=== PATIENT | female | born 1950 | race Caucasian/White ===

== ENCOUNTER 2022-02-01 12:57 | Inpatient (IN) | payer OTHER, MEDICARE ==
[~2022-02-01] VITALS: Ht 165.1 cm; Wt 70.8 kg
--- NOTE | 2022-02-01 13:04 | NUR ---
Patient to ER bed 04 to gown for evaluation. Side rails up. Report given received from PLACIDO Hilario.
[2022-02-01 13:05] VITALS: BP_SYST 119
--- NOTE | 2022-02-01 13:05 | NUR ---
Pt was brought in from home by ACLS after brother did a wellness check this am and determined she had not been eating and drinking for several days. Pt has hx of psychiatric conditions and type II diabetes. Pt was seen for failure to thrive 6 weeks ago by Alvarado Ng. Pt lives alone and brother is concerned that she can no longer care for herself. VSS, patient is A&Ox2, slow to respond, clearly anxious. Care to be provided as ordered.
[2022-02-01] MEDS ORDERED: NACL 0.9% 1,000 ML IV ONE ×3 (13:15→16:15)
--- NOTE | 2022-02-01 15:00 | NUR ---
ER at bedside examining patient.
--- NOTE | 2022-02-01 15:10 | NUR ---
RECIEVED REPORT FROM PLACIDO SEWELL.
[2022-02-01 15:16] LABS: BASOPHILS # (AUTO) 0.1 K/uL (0.0-0.2); EOSINOPHILS # (AUTO) 0.1 K/uL (0.0-0.4); MEAN CORPUSCULAR HEMOGLOBIN 31 pg (27-31); MEAN CORPUSCULAR HGB CONC 36 % (32-36); MONOCYTES # (AUTO) 1.1 K/uL (0.0-1.0); NEUTROPHILS # (AUTO) 11.5 K/uL (1.8-7.7)
[2022-02-01 15:20] LABS: ACETONE, SERUM NEGATIVE (NEGATIVE)
[2022-02-01 15:22] LABS: WHITE BLOOD COUNT (AUTO) 14.7 K/uL (4.8-10.8)
[2022-02-01 15:23] LABS: BASOPHILS % (AUTO) 0.4 % (0.0-2.0); EOSINOPHILS % (AUTO) 0.5 % (0.0-4.0); HEMATOCRIT 39.9 % (36-48); HEMOGLOBIN 14.2 g/dL (12.0-16.0); LYMPHOCYTES # (AUTO) 1.9 K/uL (1.0-5.5); LYMPHOCYTES % (AUTO) 13.3 % (20.5-51.5); MEAN CORPUSCULAR VOLUME 86 fL (79.0-98.0); MONOCYTES % (AUTO) 7.6 % (1.7-9.3); NEUTROPHILS % (AUTO) 78.2 % (40.0-70.0); PLATELET COUNT (AUTO) 251 K/uL (130-430); RED BLOOD CELL COUNT(AUTO) 4.63 MIL/uL (4.2-6.2)
[2022-02-01 15:39] LABS: ANION GAP 17 (5-15); CALCIUM 10.5 mg/dL (8.4-11.0); CHLORIDE 95 mmol/L (98-107); GLUCOSE 337 mg/dL (70-99)
[2022-02-01 15:40] LABS: ALANINE AMINOTRANSFERASE 100 U/L (12-78); ALBUMIN 3.4 g/dL (3.4-4.8); ASPARTATE AMINOTRANSFERASE 77 U/L (10-37); CREATININE 1.62 mg/dL (0.55-1.30); UREA NITROGEN, BLOOD 37 mg/dL (8-21)
[2022-02-01] MEDS ORDERED: POTASSIUM CHLORIDE 20 MEQ/PKT PACKET PO ONE (15:45)
[2022-02-01] MEDS ORDERED: KCL 40 mEq in 100 mL (PREMIX) 100 ML IV ONE (15:45)
[2022-02-01] MEDS ORDERED: cefTRIAXone 1 GM in D5W 50 ML IV ONE (16:00)
[2022-02-01 16:01] LABS: PHOSPHORUS 3.2 mg/dL (2.7-4.5)
[2022-02-01] MEDS ORDERED: DOCUSATE SODIUM 100 MG CAPSULE PO PRN (16:15)
[2022-02-01] MEDS ORDERED: MAGNESIUM SULFATE 50 ML IV PRN (16:15)
[2022-02-01] MEDS ORDERED: POTASSIUM CHLORIDE 20 MEQ TAB.PRT.SR PO PRN (16:15)
[2022-02-01] MEDS ORDERED: MUPIROCIN 2% TOPICAL OINTMENT 22 GM NS PRN (16:15)
[2022-02-01] MEDS ORDERED: ONDANSETRON HCL 4 MG/2 ML VIAL IVP PRN (16:15)
[2022-02-01] MEDS ORDERED: ACETAMINOPHEN 325 MG TABLET PO PRN (16:15)
[2022-02-01] MEDS ORDERED: MORPHINE 2 MG/ML INJ. SYRINGE IVP PRN ×2 (16:15)
[2022-02-01] MEDS ORDERED: cefTRIAXone 1 GM VIAL ONE (16:39)
--- NOTE | 2022-02-01 17:43 | NUR ---
PT ATTEMPTED TO PROVIDE URINE SPECIMEN, SCANT AMOUNT OF BRIGHTLY ORANGE COLORED URINE.
[2022-02-01] MEDS ORDERED: LOSA50TA28 PO (17:58)
[2022-02-01] MEDS ORDERED: PROP60CA2 PO (17:58)
[2022-02-01] MEDS ORDERED: ATOR10TA68 PO (17:58)
[2022-02-01] MEDS ORDERED: LEVO75CA5 PO (17:58)
[2022-02-01] MEDS ORDERED: DAPA5TAB PO (17:58)
[2022-02-01] MEDS ORDERED: DULO60CA42 PO (17:58)
[2022-02-01] MEDS ORDERED: METF-834 PO (17:58)
[2022-02-01] MEDS ORDERED: PIOG30TA70 PO (17:58)
[2022-02-01] MEDS ORDERED: CARB100C4 PO (17:58)
[2022-02-01] MEDS ORDERED: KLO1 PO (17:58)
--- NOTE | 2022-02-01 18:00 | NUR ---
Swabbed for COVID, sent to lab
--- NOTE | 2022-02-01 18:08 | NUR ---
Admit bed requested Patient will be admitted to care of . Admitted to MEDSURG unit. Diagnosis ACUTE KIDNEY INFECTION Inpatient (Yes or No) Y Observation (Yes or No) N Orientation concerns or request close to nursing station (Yes or No) N Covid Status PENDING On vent or bipap N Isolation requirements N Needs a sitter N From Home (Yes or if No enter name of facility) HOME Requires Dialysis (Yes or No) N Med Rec Completed (Yes of No) YES
--- NOTE | 2022-02-01 18:11 | NUR ---
IVF RUNNING SLOWLY, PT WITH 24 GAUGE TO RAC, PT SPLINTED TO SOFT BOARD FOR PROPER PLACEMENT TO ASSIST IN FLUID REPLACCEMENT.
[2022-02-01 19:45] VITALS: BP_SYST 115
--- NOTE | 2022-02-01 20:19 | NUR ---
Patient will be admitted to [facility]. Admitted to MEDSURG unit. Will go to room 122. Belongings list completed. Complete and up to date summary report printed. SBAR report to be given at bedside with opportunity for questions.
[2022-02-01 20:30] VITALS: BP_SYST 121
--- NOTE | 2022-02-01 20:30 | NUR ---
OPENING NOTE RECEIVED PT ED PT AOX2, WITH DELAYED RESPONSE. IVF RUNNING SLOWLY, PT WITH 24 GAUGE TO RAC. FLUIDS SHOULD BE BOLUS WILL PLACE ANOTHER IV TO COMPLETE 3 BOLUS OF NS
--- NOTE | 2022-02-01 20:40 | NUR ---
PT PULLED OUT IV PT STATED ACCIDENT SHE WAS TRYING TO FIX HER COVER AND IV FELL OUT
--- NOTE | 2022-02-01 21:15 | NUR ---
NEW IV PLACED IV STARTED IN LEFT A/C 20 G.
--- NOTE | 2022-02-01 21:45 | NUR ---
CALLED MD TO INFORM PT HARD STICK AND PT PULLED OUT IV AND K RIDER WAS NOT GIVEN IN ED.
--- NOTE | 2022-02-01 22:30 | NUR ---
PT PULLED OUT IV PT STATED SHE TOOK OUT IV BECAUSE IT WAS HURTING. PT EDUCATED ON WHY SHE HAS TO LEAVE THE NEXT IV IN PLACE.
--- NOTE | 2022-02-01 22:40 | NUR ---
CALLED MD CALLED MD TO REQUEST MIDLINE, ORDER WAS GIVEN.
--- NOTE | 2022-02-01 23:00 | NUR ---
CALLED REQUESTED STAT LABS R/T K TEJ UNABLE TO BE GIVEN WAITING ON MIDLINE
--- NOTE | 2022-02-01 23:05 | NUR ---
SPOKE WITH BROTHER ROCHELLE SPOKE WITH BROTHER TO VERIFY MEDICATIONS AND THAT PT LIVES BY HERSELF. BROTHER VERIFIED PT HAS NURSE THAT SHOULD COME DAILY
[2022-02-01] MEDS: QUEtiapine FUMARATE 25 MG TABLET PO PRN (23:24)
--- NOTE | 2022-02-01 23:30 | NUR ---
NEW IV STARTED PT HAS A NEW 29G IN THE RIGHT FOREARM.
[2022-02-01 23:40] LABS: MEAN CORPUSCULAR HGB CONC 36 % (32-36)
[2022-02-01 23:54] LABS: BASOPHILS % (AUTO) 0.2 % (0.0-2.0); HEMATOCRIT 43.3 % (36-48); HEMOGLOBIN 15.4 g/dL (12.0-16.0); LYMPHOCYTES # (AUTO) 1.9 K/uL (1.0-5.5); LYMPHOCYTES % (AUTO) 11.1 % (20.5-51.5); MEAN CORPUSCULAR HEMOGLOBIN 30 pg (27-31); MEAN CORPUSCULAR VOLUME 85 fL (79.0-98.0); MONOCYTES # (AUTO) 1.9 K/uL (0.0-1.0); MONOCYTES % (AUTO) 10.6 % (1.7-9.3); NEUTROPHILS # (AUTO) 13.8 K/uL (1.8-7.7); NEUTROPHILS % (AUTO) 78.1 % (40.0-70.0); PLATELET COUNT (AUTO) 224 K/uL (130-430); RED BLOOD CELL COUNT(AUTO) 5.12 MIL/uL (4.2-6.2); RED CELL DISTRIBUTION WIDTH 15.8 % (9.0-15.0); WHITE BLOOD COUNT (AUTO) 17.6 K/uL (4.8-10.8)
[2022-02-02] VITALS: BP_SYST 127
--- NOTE | 2022-02-02 01:00 | NUR ---
CALLED CRITICAL LAB K+ 2.0Emily ORDERED AND PLACE PT ON TELE
[2022-02-02 01:13] LABS: ANION GAP 18 (5-15); CHLORIDE 98 mmol/L (98-107); TOTAL BILIRUBIN 2.6 mg/dL (0.0-1.0)
[2022-02-02 01:14] LABS: ALANINE AMINOTRANSFERASE 96 U/L (12-78); ALBUMIN 3.5 g/dL (3.4-4.8); ASPARTATE AMINOTRANSFERASE 61 U/L (10-37); UREA NITROGEN, BLOOD 36 mg/dL (8-21)
[2022-02-02 01:15] LABS: CALCIUM 9.7 mg/dL (8.4-11.0); CREATININE 1.36 mg/dL (0.55-1.30); GLUCOSE 324 mg/dL (70-99)
[2022-02-02] MEDS ORDERED: KCL 40 mEq in 100 mL (PREMIX) 100 ML IV ONE (01:30)
--- NOTE | 2022-02-02 07:10 | NUR ---
opening note received SBAR from night RN. Patient in bed, respirations even, non labored, 2L O2 nasal canula, bed in low and locked position call light within reach,, bed alarm on.
[2022-02-02 07:21] LABS: BASOPHILS % (AUTO) 0.1 % (0.0-2.0); HEMATOCRIT 40.9 % (36-48); HEMOGLOBIN 14.4 g/dL (12.0-16.0); LYMPHOCYTES # (AUTO) 1.6 K/uL (1.0-5.5); LYMPHOCYTES % (AUTO) 14.5 % (20.5-51.5); MEAN CORPUSCULAR HEMOGLOBIN 30 pg (27-31); MEAN CORPUSCULAR HGB CONC 35 % (32-36); MEAN CORPUSCULAR VOLUME 86 fL (79.0-98.0); MONOCYTES # (AUTO) 1.3 K/uL (0.0-1.0); MONOCYTES % (AUTO) 11.3 % (1.7-9.3); NEUTROPHILS # (AUTO) 8.3 K/uL (1.8-7.7); NEUTROPHILS % (AUTO) 74.1 % (40.0-70.0); PLATELET COUNT (AUTO) 206 K/uL (130-430); RED BLOOD CELL COUNT(AUTO) 4.77 MIL/uL (4.2-6.2); RED CELL DISTRIBUTION WIDTH 15.6 % (9.0-15.0); WHITE BLOOD COUNT (AUTO) 11.2 K/uL (4.8-10.8)
[2022-02-02 07:38] LABS: ANION GAP 13 (5-15); CALCIUM 8.7 mg/dL (8.4-11.0); CHLORIDE 105 mmol/L (98-107); CREATININE 1.17 mg/dL (0.55-1.30); GLUCOSE 263 mg/dL (70-99); UREA NITROGEN, BLOOD 31 mg/dL (8-21)
[2022-02-02 08:00] VITALS: BP_SYST 114
--- NOTE | 2022-02-02 08:31 | NUR ---
CONSULT CARDIOLOGY NSTEMI TYPE 2 DR ACEVEDO [phone] DR ACEVEDO ROUNDING AND INFORMED OF CONSULT
[2022-02-02] MEDS: DULoxetine HCL 30 MG CAPSULE.DR (CYMBALTA) PO SCH (08:43)
[2022-02-02] MEDS: metFORMIN HCL 500 MG TABLET PO SCH ×2 (08:44→18:00)
[2022-02-02] MEDS: ATORVASTATIN 10 MG TABLET PO SCH (08:48)
[2022-02-02] MEDS: LOSARTAN POTASSIUM 50 MG TABLET (COZAAR) PO SCH (08:49)
[2022-02-02] MEDS ORDERED: PIOGLITAZONE HCL 15 MG TABLET PO SCH (09:00)
[2022-02-02] MEDS ORDERED: ARIPiprazole 5 MG TAB PO ONE ×2 (09:00→09:15)
[2022-02-02] MEDS ORDERED: FLUoxetine HCL 20 MG CAPSULE (PROzac) PO SCH (09:00)
[2022-02-02] MEDS: PROPRANOLOL HCL (INDERAL LA 60MG) PO SCH (09:44)
--- NOTE | 2022-02-02 10:51 | NUR ---
HIGH ALERT NOTE: Dr. Fierro on the floor received order
[2022-02-02] MEDS ORDERED: POTASSIUM CHLORIDE 20 MEQ TAB.PRT.SR PO ONE (11:00)
--- NOTE | 2022-02-02 11:00 | NUR ---
MORRIS CATH: Morris catheter with 10 cc bulb inserted with use of sterile technique. Bulb inflated with 10 cc sterile water. Immediate return of 150 cc urine noted. Bedside drainage bag placed below level of bladder. Urine sample collected and sent to lab at Pt tolerated procedure well, denies any paint or discomfort
[2022-02-02 11:47] LABS: FREE T4 (FREE THYROXINE) 1.3 ng/dL (0.6-1.6); THYROID STIMULATING HORMONE 0.78 uIu/mL (0.34-4.82)
[2022-02-02 12:00] VITALS: BP_SYST 133
--- NOTE | 2022-02-02 12:20 | NUR ---
Nurse note informed Dr Fierro, that patient is burping and gagging a bit with food and water, new orders received
[2022-02-02 12:37] LABS: BILIRUBIN,URINE 2+ (NEGATIVE); BLOOD, URINE NEGATIVE (NEGATIVE); CLARITY/URINE CLEAR (CLEAR); COLOR,URINE ORANGE (YELLOW); GLUCOSE,URINE 3+ (NEGATIVE); KETONES,URINE 1+ (NEGATIVE); LEUKOCYTE ESTERASE ,URINE NEGATIVE (NEGATIVE); NITRITE, URINE POSITIVE (NEGATIVE); PROTEIN URINE TRACE (NEGATIVE)
[2022-02-02 12:47] LABS: BACTERIA,URINE None Seen /HPF (None Seen); MUCUS,URINE None Seen /LPF (None Seen); RBC,URINE 0-3 /HPF (0-3); WBC,URINE 0-3 /HPF (0-3)
[2022-02-02] MEDS ORDERED: clonazePAM 0.5 MG TABLET PO ONE (13:00)
[2022-02-02] MEDS ORDERED: PANTOPRAZOLE SODIUM 40 MG/VIAL (PROTONIX) IVP ONE (13:00)
--- NOTE | 2022-02-02 15:30 | NUR ---
NURSE NOTE PATIENT IN BED, EYES CLOSED, BED IN LOW AND LOCKED POSITION CALL LIGHT WITHIN REACH, BED ALARM ON. 2L O2 NASAL CANULA, NO SIGNS OF DISTRESS NOTED.
[2022-02-02 16:00] VITALS: BP_SYST 123
[2022-02-02] MEDS: cefTRIAXone 1 GM IVPB PREMIX 50 ML IV SCH (16:26)
--- NOTE | 2022-02-02 19:05 | NUR ---
CLOSING NOTE PROVIDED SBAR TO NIGHT RN. PATIENT IN BED RESPIRATIONS EVEN, NON LABORED, BED IN LOW AND LOCKED POSITION CALL LIGHT WITHIN REACH, BED ALARM ON. ENDORSED CARE TO NIGHT RN
[2022-02-02 20:00] VITALS: BP_SYST 127
[2022-02-02] MEDS: QUEtiapine FUMARATE 25 MG TABLET PO PRN (20:40)
[2022-02-02] MEDS: HEPARIN SODIUM,PORCINE 5,000 UNITS/ML VIAL SUBCUT SCH (20:40)
[2022-02-03 02:07] VITALS: BP_SYST 130
--- NOTE | 2022-02-03 07:15 | NUR ---
Opening Note: Report rcvd from out going NOC RN, all cares assumed.
--- NOTE | 2022-02-03 07:45 | NUR ---
Dr. Lux making rounds, report given, to review chart and place orders.
--- NOTE | 2022-02-03 08:03 | NUR ---
Dr. Payne making rounds, report given, to review chart.
[2022-02-03] MEDS: DULoxetine HCL 30 MG CAPSULE.DR (CYMBALTA) PO SCH (08:30)
[2022-02-03] MEDS ORDERED: DEXTROSE 50% JECT 50 ML DISP.SYRIN IVP PRN (08:30)
--- NOTE | 2022-02-03 08:30 | NUR ---
Accu-Check BS 166 / covered with 2 units per sliding scale.
[2022-02-03] MEDS: ATORVASTATIN 10 MG TABLET PO SCH (08:31)
[2022-02-03] MEDS: PROPRANOLOL HCL (INDERAL LA 60MG) PO SCH (08:31)
[2022-02-03] MEDS: PANTOPRAZOLE SODIUM 40 MG/VIAL (PROTONIX) IVP SCH (08:31)
[2022-02-03] MEDS: HEPARIN SODIUM,PORCINE 5,000 UNITS/ML VIAL SUBCUT SCH ×2 (08:32→21:00)
[2022-02-03] MEDS: LOSARTAN POTASSIUM 50 MG TABLET (COZAAR) PO SCH (08:36)
[2022-02-03] MEDS ORDERED: METOCLOPRAMIDE HCL 10 MG/2 ML VIAL IVP ONE (08:45)
[2022-02-03] MEDS: INSULIN LISPRO SLIDING SCALE 100 UNITS/ML, 3 ML VIAL (humaLOG) SUBCUT PRN ×2 (08:49→12:16)
[2022-02-03 08:54] LABS: BASOPHILS % (AUTO) 0.1 % (0.0-2.0); EOSINOPHILS % (AUTO) 0.4 % (0.0-4.0); HEMATOCRIT 36.4 % (36-48); HEMOGLOBIN 12.7 g/dL (12.0-16.0); LYMPHOCYTES # (AUTO) 2.2 K/uL (1.0-5.5); LYMPHOCYTES % (AUTO) 28.7 % (20.5-51.5); MEAN CORPUSCULAR HEMOGLOBIN 30 pg (27-31); MEAN CORPUSCULAR HGB CONC 35 % (32-36); MEAN CORPUSCULAR VOLUME 87 fL (79.0-98.0); MONOCYTES # (AUTO) 0.9 K/uL (0.0-1.0); MONOCYTES % (AUTO) 11.9 % (1.7-9.3); NEUTROPHILS # (AUTO) 4.4 K/uL (1.8-7.7); NEUTROPHILS % (AUTO) 58.9 % (40.0-70.0); PLATELET COUNT (AUTO) 166 K/uL (130-430); RED BLOOD CELL COUNT(AUTO) 4.21 MIL/uL (4.2-6.2); RED CELL DISTRIBUTION WIDTH 15.8 % (9.0-15.0); WHITE BLOOD COUNT (AUTO) 7.5 K/uL (4.8-10.8)
[2022-02-03 08:57] LABS: ANION GAP 10 (5-15); CALCIUM 8.4 mg/dL (8.4-11.0); CHLORIDE 110 mmol/L (98-107); CREATININE 1.07 mg/dL (0.55-1.30); GLUCOSE 191 mg/dL (70-99); UREA NITROGEN, BLOOD 23 mg/dL (8-21)
[2022-02-03] MEDS ORDERED: AZITHROMYCIN 250 MG TABLET PO ONE (09:00)
[2022-02-03 09:09] LABS: ALANINE AMINOTRANSFERASE 89 U/L (12-78); ALBUMIN 2.6 g/dL (3.4-4.8); AMYLASE 102 U/L (0-100); ASPARTATE AMINOTRANSFERASE 82 U/L (10-37); LIPASE 597 U/L (73-393); THYROID STIMULATING HORMONE 0.65 uIu/mL (0.34-4.82); TOTAL BILIRUBIN 1.5 mg/dL (0.0-1.0)
--- NOTE | 2022-02-03 09:14 | NUR ---
CRITICAL LAB: Laboratory called with critical lab value Troponin 285. Medical record number and patient name verified. Read back of values done. MD notified of value. No orders given at this time.
--- NOTE | 2022-02-03 10:08 | NUR ---
GI MD making rounds, report given, MD at bedside seeing patient, plan of care discussed.
--- NOTE | 2022-02-03 10:15 | NUR ---
New order for fluids obtained, order carried out per MD>
--- NOTE | 2022-02-03 11:06 | NUR ---
HIGH ALERT NOTE: Called Dr. Payne back and identified within the medical roster to verify physician authenticity.
--- NOTE | 2022-02-03 11:07 | NUR ---
Delio ordered and transcribed for Dr. Payne, 40MeQ x 1
[2022-02-03] MEDS ORDERED: POTASSIUM CHLORIDE 40 MEQ in NS 250 ML IV ONE (11:15)
[2022-02-03] MEDS: LR 1,000 ML IV SCH ×2 (11:38→21:00)
[2022-02-03] MEDS ORDERED: KCL 40 mEq in 100 mL (PREMIX) 100 ML IV ONE ×2 (11:41→12:15)
[2022-02-03 12:20] VITALS: BP_SYST 109
--- NOTE | 2022-02-03 13:16 | NUR ---
RD Recommendations *If/when medically appropriate, please resume regular diet if SP/ agreeable *Consider bowel regimen if needed *Consider dextrose infusion to add calories b/c she is not eating GS, RD Please refer to RD Assessment for further details Addendum: 02/03/22 at [address] Amended: Links added.
[2022-02-03] MEDS: METOCLOPRAMIDE HCL 10 MG/2 ML VIAL IVP SCH ×2 (14:00→23:17)
--- NOTE | 2022-02-03 14:10 | NUR ---
Consent for CT Scan obtained over phone from sister Jess, witnessed by 2nd RN
--- NOTE | 2022-02-03 14:12 | NUR ---
Patient refused Reglan IVP
--- NOTE | 2022-02-03 14:37 | NUR ---
Paged Dr. Payne for change in Neuro Status, patient lethargic and minimally responsive to pain. Charge aware. Vitals stable, Accu Check BS 152.
--- NOTE | 2022-02-03 14:40 | NUR ---
Spoke with Dr. Payne, new orders for ABG placed STAT
--- NOTE | 2022-02-03 14:50 | NUR ---
Pulmonary Function Technician TOOL MAINTENANCE TECHNICIAN spoke to Rn. Gupta who stated pt. lives alone in a 2 story townhouse, is very dehydrated, has a friend Stephanie who stated pt. is no longer taking her meds, is no longer taking care of self and is no longer eating. Pt. suffers from depression brother Juancho, who is local is not assisting at this time. Pts sister who resides in [place] is calling and would like to offer assistance. TOOL MAINTENANCE TECHNICIAN also has a referral from Dr. Fierro to see pt. to help with Cancer Dx. TOOL MAINTENANCE TECHNICIAN introduced self to pts. friend, Stephanie who stated she has been good friends with pt. for many years and confirmed all that Rn stated. During this interview. Stephanie received a call from pts. sister, Jess Rios [phone]. TOOL MAINTENANCE TECHNICIAN was able to speak to sister on [employer] phone on speaker. Sister Jess is concerned for pts. health and realizes pt. is no longer caring for self. Sister stated hospital needs consent from Juancho for a procedure. TOOL MAINTENANCE TECHNICIAN spoke to Davon Gupta to ask if she could come to pts. room for consent. TOOL MAINTENANCE TECHNICIAN will come back to pts. room to see how she could offer further assistance. Addendum: 02/03/22 at 1647 by Maira GARCIA Amend Second paragraph, re. "TOOL MAINTENANCE TECHNICIAN also has a referral from Dr. Fierro to see pt. to help with a Cancer Dx." pertains to another pt. Please disregard.
--- NOTE | 2022-02-03 15:00 | NUR ---
Dr. Payne aware of ABG results, no new orders.
--- NOTE | 2022-02-03 16:16 | NUR ---
Patient taken to CT for imaging, RN at bedside
--- NOTE | 2022-02-03 16:45 | NUR ---
Patient returned from CT
[2022-02-03] MEDS: cefTRIAXone 1 GM IVPB PREMIX 50 ML IV SCH (17:27)
--- NOTE | 2022-02-03 17:35 | NUR ---
RN Rounds Patient repositioned will pillow support for comfort, all needs met, patient clean and dry, bed low and locked for safety with call light in reach.
[2022-02-03 17:53] VITALS: BP_SYST 120
--- NOTE | 2022-02-03 18:48 | NUR ---
MRCP ordered by Dr. Dempsey, order placed.
[2022-02-03 20:00] VITALS: BP_SYST 113
[2022-02-04] VITALS: BP_SYST 111
--- NOTE | 2022-02-04 00:58 | NUR ---
CALLED R/T HR BETWEEN 42-48.DR GAMBLE WAXER FLOOR AND ORDER TO HOLD BETA OLEGARIO UNTIL REVEAL BY CARDIO. DR KELLEY
--- NOTE | 2022-02-04 01:00 | NUR ---
MD CALLED DR SHIPMAN AFTER HOURS CALLED AND WILL INFORM MD IN THE AM OF NEED TO REEVALUATE THE PT
--- NOTE | 2022-02-04 01:30 | NUR ---
CALLED DR JACOBSON EXCHANGED WAS CALLED FOR RE EVAL OF BETA OLEGARIO IN THE AM
[2022-02-04] MEDS: LR 1,000 ML IV SCH ×2 (02:46→11:10)
[2022-02-04] MEDS: METOCLOPRAMIDE HCL 10 MG/2 ML VIAL IVP SCH ×2 (04:48→13:46)
[2022-02-04 08:00] VITALS: BP_SYST 108
[2022-02-04] MEDS: DULoxetine HCL 30 MG CAPSULE.DR (CYMBALTA) PO SCH ×2 (09:00→13:46)
[2022-02-04] MEDS: AZITHROMYCIN 250 MG TABLET PO SCH ×2 (09:00→13:46)
[2022-02-04] MEDS: LOSARTAN POTASSIUM 50 MG TABLET (COZAAR) PO SCH (09:00)
[2022-02-04] MEDS: ATORVASTATIN 10 MG TABLET PO SCH ×2 (09:00→13:46)
[2022-02-04 09:38] LABS: BASOPHILS % (AUTO) 0.4 % (0.0-2.0); EOSINOPHILS # (AUTO) 0.1 K/uL (0.0-0.4); EOSINOPHILS % (AUTO) 0.7 % (0.0-4.0); HEMATOCRIT 36.8 % (36-48); LYMPHOCYTES # (AUTO) 2.2 K/uL (1.0-5.5); LYMPHOCYTES % (AUTO) 26.2 % (20.5-51.5); MEAN CORPUSCULAR HEMOGLOBIN 30 pg (27-31); MEAN CORPUSCULAR HGB CONC 35 % (32-36); MEAN CORPUSCULAR VOLUME 86 fL (79.0-98.0); MONOCYTES % (AUTO) 11.4 % (1.7-9.3); NEUTROPHILS # (AUTO) 5.2 K/uL (1.8-7.7); NEUTROPHILS % (AUTO) 61.3 % (40.0-70.0); PLATELET COUNT (AUTO) 157 K/uL (130-430); RED BLOOD CELL COUNT(AUTO) 4.29 MIL/uL (4.2-6.2); RED CELL DISTRIBUTION WIDTH 15.8 % (9.0-15.0); WHITE BLOOD COUNT (AUTO) 8.4 K/uL (4.8-10.8)
[2022-02-04 09:49] LABS: ALBUMIN 2.8 g/dL (3.4-4.8); ANION GAP 7 (5-15); ASPARTATE AMINOTRANSFERASE 92 U/L (10-37); CALCIUM 9.3 mg/dL (8.4-11.0); CHLORIDE 109 mmol/L (98-107); CREATININE 0.97 mg/dL (0.55-1.30); GLUCOSE 141 mg/dL (70-99); LIPASE 584 U/L (73-393); TOTAL BILIRUBIN 1.3 mg/dL (0.0-1.0); UREA NITROGEN, BLOOD 19 mg/dL (8-21)
[2022-02-04 10:20] LABS: ALANINE AMINOTRANSFERASE 102 U/L (12-78)
[2022-02-04] MEDS: HEPARIN SODIUM,PORCINE 5,000 UNITS/ML VIAL SUBCUT SCH (11:03)
[2022-02-04] MEDS: PANTOPRAZOLE SODIUM 40 MG/VIAL (PROTONIX) IVP SCH (11:03)
[2022-02-04 11:35] VITALS: BP_SYST 112
--- NOTE | 2022-02-04 12:42 | NUR ---
Spoke w/patient, she agreed to SNF placement. She had no preference of SNF. Referral sent to [facility] for [facility] bed.
--- NOTE | 2022-02-04 13:52 | NUR ---
Patient accepted at the [facility] room 12. Number for report [phone]. Transport by [facility] ambulance [phone] at 5:30 PM.
[2022-02-04 16:24] VITALS: BP_SYST 110
[2022-02-04] MEDS: cefTRIAXone 1 GM IVPB PREMIX 50 ML IV SCH (16:36)
[2022-02-04] MEDS: INSULIN LISPRO SLIDING SCALE 100 UNITS/ML, 3 ML VIAL (humaLOG) SUBCUT PRN (16:36)
== END 2022-02-04 17:30 | DRG 871 ==
LOC: SED 12:57 → SMU 16:06 → STU 02-02 01:26
PROVIDERS: ADMIT Family Medicine; ATTEND Family Medicine
PROC: 05HY33Z Insertion of Infusion Device into Upper Vein, Percutaneous Approach (ICD-10-PCS; principal; 2022-02-02)
PROC: B54MZZA Ultrasonography of Right Upper Extremity Veins, Guidance (ICD-10-PCS; 2022-02-02)
DX: A41.9 Sepsis, unspecified organism (principal); I21.A1 Myocardial infarction type 2; J69.0 Pneumonitis due to inhalation of food and vomit; N17.0 Acute kidney failure with tubular necrosis; E86.0 Dehydration; E78.5 Hyperlipidemia, unspecified; R62.7 Adult failure to thrive; E87.6 Hypokalemia; E03.9 Hypothyroidism, unspecified; E11.9 Type 2 diabetes mellitus without complications; Z20.822 Contact with and (suspected) exposure to COVID-19; I10 Essential (primary) hypertension; I25.2 Old myocardial infarction; Z91.14 Patient's other noncompliance with medication regimen; Z85.72 Personal history of non-Hodgkin lymphomas; Z79.84 Long term (current) use of oral hypoglycemic drugs; Z88.8 Allergy status to other drugs, medicaments and biological substances; Z68.26 Body mass index [BMI] 26.0-26.9, adult
CPT/HCPCS: 36415; 36600; 71045; 74181; 76376; 76705; 80048; 80053; 81000; 82009; 82150; 82550; 82803-TC; 82962; 83036; 83605; 83690; 83735; 84100; 84439; 84443; 84484; 85025; 85610-TC; 85730-TC; 87086; 93005; 93306; 96361; 96365; 97163-GP; 99285; C1751; C9113; G0378; J0696; J1644; J2765; J3480; J7030; J7050; J7060; J7120; Q0144; Q9967

== ENCOUNTER 2022-02-08 15:34 | Inpatient (IN) | payer OTHER, MEDICARE ==
[~2022-02-08] VITALS: Ht 167.6 cm; Wt 70.3 kg
[~2022-02-08 15:34] MED LIST: CARB100C4 PO; DAPA5TAB PO; DULO60CA42 PO; KLO1 PO; LEVO75CA5 PO; LOSA50TA28 PO; METF-834 PO; PROP60CA2 PO; VECURONIUM BROMIDE 10 MG/VIAL (NORCURON) ONE
[2022-02-08 15:48] VITALS: BP_SYST 137
[2022-02-08] MEDS ORDERED: NALOXONE HCL 2 MG/2 ML SYR ONE (16:02)
[2022-02-08 17:05] LABS: BASOPHILS # (AUTO) 0.1 K/uL (0.0-0.2); BASOPHILS % (AUTO) 0.6 % (0.0-2.0); EOSINOPHILS % (AUTO) 0.1 % (0.0-4.0); HEMOGLOBIN 12.5 g/dL (12.0-16.0); LYMPHOCYTES # (AUTO) 1.1 K/uL (1.0-5.5); LYMPHOCYTES % (AUTO) 11.8 % (20.5-51.5); MEAN CORPUSCULAR HEMOGLOBIN 30 pg (27-31); MEAN CORPUSCULAR HGB CONC 35 % (32-36); MEAN CORPUSCULAR VOLUME 88 fL (79.0-98.0); MONOCYTES # (AUTO) 1.2 K/uL (0.0-1.0); MONOCYTES % (AUTO) 12.8 % (1.7-9.3); NEUTROPHILS # (AUTO) 6.9 K/uL (1.8-7.7); NEUTROPHILS % (AUTO) 74.7 % (40.0-70.0); PLATELET COUNT (AUTO) 156 K/uL (130-430); RED BLOOD CELL COUNT(AUTO) 4.12 MIL/uL (4.2-6.2); RED CELL DISTRIBUTION WIDTH 15.6 % (9.0-15.0); WHITE BLOOD COUNT (AUTO) 9.2 K/uL (4.8-10.8)
[2022-02-08 17:08] LABS: BILIRUBIN,URINE NEGATIVE (NEGATIVE); CLARITY/URINE CLEAR (CLEAR); COLOR,URINE YELLOW (YELLOW); GLUCOSE,URINE NEGATIVE (NEGATIVE); KETONES,URINE 1+ (NEGATIVE); LEUKOCYTE ESTERASE ,URINE NEGATIVE (NEGATIVE); NITRITE, URINE NEGATIVE (NEGATIVE); PROTEIN URINE TRACE (NEGATIVE); UROBILINOGEN,URINE 0.2 (0.2-1.0)
[2022-02-08 17:21] LABS: BARBITURATE, URINE NEGATIVE (NEG <=200); BENZODIAZEPINE, URINE NEGATIVE (NEG <=150); CANNABINOID, URINE NEGATIVE (NEG <=50); COCAINE, URINE NEGATIVE (NEG <=150); METHAMPHETAMINES SCREEN,URINE NEGATIVE (NEG <=500); OPIATE, URINE NEGATIVE (NEG <=100); PHENCYCLIDINE SCREEN,URINE NEGATIVE (NEG <=25); UR TRICYCLIC ANTIDEPRESSANTS NEGATIVE (NEG <=300); URINE AMPHETAMINE NEGATIVE (NEG <=500); URINE METHADONE NEGATIVE (NEG <=200); URINE OXYCODONE SCREEN NEGATIVE (NEG <=100); URINE PROPOXYPHENE SCREEN NEGATIVE (NEG <=300)
[2022-02-08 17:22] LABS: BLOOD, URINE TRACE (NEGATIVE)
[2022-02-08 17:32] LABS: BACTERIA,URINE None Seen /HPF (None Seen); MUCUS,URINE 1+ /LPF (None Seen); RBC,URINE 0-3 /HPF (0-3); WBC,URINE 0-3 /HPF (0-3)
[2022-02-08 17:33] LABS: HYALINE CASTS, URINE 0-10 /LPF (None Seen); YEAST,URINE Few /HPF (None Seen)
[2022-02-08 17:54] LABS: ALANINE AMINOTRANSFERASE 48 U/L (12-78); ALBUMIN 2.7 g/dL (3.4-4.8); ANION GAP 13 (5-15); ASPARTATE AMINOTRANSFERASE 49 U/L (10-37); CHLORIDE 114 mmol/L (98-107); CREATININE 1.21 mg/dL (0.55-1.30); GLUCOSE 127 mg/dL (70-99); PROTHROMBIN TIME 10.5 SECS (9.5-12.5); TOTAL BILIRUBIN 0.9 mg/dL (0.0-1.0); UREA NITROGEN, BLOOD 18 mg/dL (8-21)
[2022-02-08 17:58] LABS: ACETAMINOPHEN < 1 ug/mL (1-30); ALCOHOL, BLOOD < 3 mg/dL (<10)
[2022-02-08 18:03] LABS: ACETONE, SERUM SMALL (NEGATIVE)
[2022-02-08] MEDS ORDERED: VANCOMYCIN HCL 1,000 MG in NS 250 ML IV ONE (18:15)
[2022-02-08] MEDS ORDERED: VANCOMYCIN HCL 1000 MG/VIAL IV ONE (19:26)
[2022-02-08] MEDS: D5/0.45 NS 1,000 ML IV SCH (19:26)
[2022-02-08] MEDS ORDERED: NACL 0.9% 1,000 ML IV ONE ×3 (20:30)
[2022-02-08] MEDS ORDERED: NOREPINEPHRINE BITARTRATE 8 MG in NS 242 ML IV PRN (20:30)
[2022-02-08] MEDS ORDERED: NOREPINEPHRINE 4 MG/4 ML VIAL IV ONE (20:30)
[2022-02-08] MEDS: dilTIAZem HCL IVP 5 MG/ML VIAL IVP ONE (20:59)
[2022-02-08] MEDS ORDERED: DEXTROSE 50% JECT 50 ML DISP.SYRIN IVP PRN (21:15)
[2022-02-08 21:30] VITALS: BP_SYST 91
[2022-02-08] MEDS: POTASSIUM CHLORIDE 20 MEQ/PKT PACKET PO ONE (21:30)
[2022-02-08] MEDS ORDERED: KCL 40 mEq in 100 mL (PREMIX) 100 ML IV ONE (21:30)
[2022-02-08] MEDS ORDERED: PANTOPRAZOLE SODIUM 40 MG/VIAL (PROTONIX) IVP ONE (21:30)
[2022-02-08] MEDS ORDERED: ENOXAPARIN SODIUM 80 MG/0.8 ML SYRINGE SUBCUT ONE (21:30)
[2022-02-08] MEDS: ASPIRIN 81 MG TAB.CHEW PO ONE (21:30)
[2022-02-08 22:00] VITALS: BP_SYST 91; BP_SYST 92
[2022-02-08] MEDS ORDERED: dilTIAZem HCL IVP 5 MG/ML VIAL IVP PRN (22:00)
[2022-02-08] MEDS: DEXAMETHASONE SOD PHOSPHATE 10 MG/ML VIAL IVP SCH (22:01)
[2022-02-08] MEDS ORDERED: PROPOFOL DRIP 100 ML IV ONE (22:20)
[2022-02-08] MEDS ORDERED: ENOXAPARIN SODIUM 80 MG/0.8 ML SYRINGE ONE (22:31)
[2022-02-08] MEDS: PROPOFOL DRIP 100 ML IV PRN (22:35)
[2022-02-08] MEDS: INSULIN REGULAR, HUMAN 100 UNITS/ML, 3 ML VIAL (humuLIN R) SUBCUT PRN (22:50)
[2022-02-08] MEDS ORDERED: AZITHROMYCIN 500 MG/VIAL (ZITHROMAX) IV ONE (22:57)
[2022-02-08 23:00] VITALS: BP_SYST 120
[2022-02-08] MEDS: AZITHROMYCIN 500 MG in NS 250 ML IV SCH (23:11)
[2022-02-08] MEDS ORDERED: PIPERACILLIN/TAZOBACTAM 3.375 GM/VIAL (ZOSYN) IV ONE (23:22)
[2022-02-08] MEDS ORDERED: DOPamine PREMIX 250 ML IV PRN (23:40)
[2022-02-08] MEDS ORDERED: DOPamine PREMIX 250 ML IV ONE (23:43)
[2022-02-08 23:54] VITALS: BP_SYST 89
[2022-02-08 23:57] VITALS: BP_SYST 89
[2022-02-09] VITALS (31 sets, daily range): BP systolic 80–157
[2022-02-09] MEDS: PIPERACILLIN/TAZO 3.375/DEX-IS 50 ML IV SCH ×5 (00:10→23:55)
[2022-02-09] MEDS: INSULIN REGULAR, HUMAN 100 UNITS/ML, 3 ML VIAL (humuLIN R) SUBCUT PRN ×5 (01:46→21:01)
[2022-02-09] MEDS: dilTIAZem HCL IVP 5 MG/ML VIAL IVP ONE (02:20)
[2022-02-09] MEDS ORDERED: POTASSIUM CHLORIDE 20 MEQ/PKT PACKET ONE (02:25)
[2022-02-09] MEDS ORDERED: ASPIRIN 81 MG TAB.CHEW ONE (02:26)
[2022-02-09] MEDS: ASPIRIN 81 MG TAB.CHEW PO ONE (02:30)
[2022-02-09] MEDS: POTASSIUM CHLORIDE 20 MEQ/PKT PACKET PO ONE (02:30)
[2022-02-09] MEDS: D5/0.45 NS 1,000 ML IV SCH (02:51)
[2022-02-09 04:29] LABS: BASOPHILS # (AUTO) 0.1 K/uL (0.0-0.2); BASOPHILS % (AUTO) 0.3 % (0.0-2.0); EOSINOPHILS % (AUTO) 0.1 % (0.0-4.0); HEMATOCRIT 34.1 % (36-48); HEMOGLOBIN 11.9 g/dL (12.0-16.0); LYMPHOCYTES # (AUTO) 1.1 K/uL (1.0-5.5); LYMPHOCYTES % (AUTO) 6.5 % (20.5-51.5); MEAN CORPUSCULAR HEMOGLOBIN 30 pg (27-31); MEAN CORPUSCULAR HGB CONC 35 % (32-36); MEAN CORPUSCULAR VOLUME 86 fL (79.0-98.0); MONOCYTES # (AUTO) 0.6 K/uL (0.0-1.0); MONOCYTES % (AUTO) 3.4 % (1.7-9.3); NEUTROPHILS % (AUTO) 89.7 % (40.0-70.0); PLATELET COUNT (AUTO) 153 K/uL (130-430); RED BLOOD CELL COUNT(AUTO) 3.96 MIL/uL (4.2-6.2); RED CELL DISTRIBUTION WIDTH 16.2 % (9.0-15.0); WHITE BLOOD COUNT (AUTO) 16.7 K/uL (4.8-10.8)
[2022-02-09 04:35] LABS: ANION GAP 13 (5-15); CALCIUM 7.6 mg/dL (8.4-11.0); CREATININE 0.98 mg/dL (0.55-1.30); GLUCOSE 275 mg/dL (70-99); UREA NITROGEN, BLOOD 14 mg/dL (8-21)
[2022-02-09 04:53] LABS: ALANINE AMINOTRANSFERASE 40 U/L (12-78); ALBUMIN 2.4 g/dL (3.4-4.8); ASPARTATE AMINOTRANSFERASE 39 U/L (10-37); CHOLESTEROL 135 mg/dL (<200); HDL CHOLESTEROL 47 mg/dL (>55); LDL CHOLESTEROL 73 mg/dL (<100); PHOSPHORUS 1.3 mg/dL (2.7-4.5); TRIGLYCERIDES 127 mg/dL (30-150)
[2022-02-09 04:58] LABS: CHLORIDE 120 mmol/L (98-107)
[2022-02-09] MEDS ORDERED: PIPERACILLIN/TAZOBACTAM 3.375 GM/VIAL (ZOSYN) IV ONE (05:32)
[2022-02-09] MEDS ORDERED: NS 500 ML IV ONE (08:45)
[2022-02-09] MEDS: ASCORBIC ACID 500 MG TABLET PO SCH ×2 (08:49→20:33)
[2022-02-09] MEDS: POTASSIUM CHLORIDE 20 MEQ/PKT PACKET PO SCH ×2 (08:49→20:33)
[2022-02-09] MEDS: CHOLECALCIFEROL (VITAMIN D3) 5,000 UNIT TABLET PO SCH (08:49)
[2022-02-09] MEDS: PANTOPRAZOLE SODIUM 40 MG/VIAL (PROTONIX) IVP SCH (08:49)
[2022-02-09] MEDS: MAGNESIUM OXIDE 400 MG TABLET PO SCH ×2 (08:49→20:33)
[2022-02-09] MEDS ORDERED: ENOXAPARIN SODIUM 80 MG/0.8 ML SYRINGE SUBCUT SCH (09:00)
[2022-02-09] MEDS ORDERED: TOCILIZUMAB 400 MG in NS 100 ML IV ONE (14:00)
[2022-02-09] MEDS ORDERED: POTASSIUM CHLORIDE 20 MEQ/PKT PACKET PO ONE (14:30)
[2022-02-09] MEDS ORDERED: NON-FORMULARY MEDICATION (Dapagliflozin Propanediol (Farxiga) 5 MG) PO SCH (14:30)
[2022-02-09] MEDS: KCL 40 mEq in D5W 1000 mL 1,000 ML IV SCH (16:38)
[2022-02-09] MEDS: ENOXAPARIN SODIUM 80 MG/0.8 ML SYRINGE SUBCUT SCH (20:33)
[2022-02-09] MEDS: metFORMIN HCL 500 MG TABLET PO SCH (20:33)
[2022-02-09] MEDS: DEXAMETHASONE SOD PHOSPHATE 10 MG/ML VIAL IVP SCH (20:34)
[2022-02-09] MEDS: AZITHROMYCIN 500 MG in NS 250 ML IV SCH (20:34)
[2022-02-10] VITALS (33 sets, daily range): BP systolic 79–149
[2022-02-10] MEDS: KCL 40 mEq in D5W 1000 mL 1,000 ML IV SCH ×3 (00:47→18:23)
[2022-02-10] MEDS: INSULIN REGULAR, HUMAN 100 UNITS/ML, 3 ML VIAL (humuLIN R) SUBCUT PRN ×5 (00:55→18:16)
[2022-02-10] MEDS: PROPOFOL DRIP 100 ML IV PRN ×2 (01:18→08:30)
[2022-02-10] MEDS: PIPERACILLIN/TAZO 3.375/DEX-IS 50 ML IV SCH ×4 (05:24→23:54)
[2022-02-10 06:51] LABS: BASOPHILS # (AUTO) 0.1 K/uL (0.0-0.2); BASOPHILS % (AUTO) 0.7 % (0.0-2.0); EOSINOPHILS % (AUTO) 0.2 % (0.0-4.0); HEMOGLOBIN 12.2 g/dL (12.0-16.0); LYMPHOCYTES # (AUTO) 1.5 K/uL (1.0-5.5); MEAN CORPUSCULAR HEMOGLOBIN 31 pg (27-31); MEAN CORPUSCULAR HGB CONC 36 % (32-36); MEAN CORPUSCULAR VOLUME 86 fL (79.0-98.0); MONOCYTES % (AUTO) 9.3 % (1.7-9.3); NEUTROPHILS % (AUTO) 75.8 % (40.0-70.0); PLATELET COUNT (AUTO) 167 K/uL (130-430); RED BLOOD CELL COUNT(AUTO) 3.94 MIL/uL (4.2-6.2); RED CELL DISTRIBUTION WIDTH 16.4 % (9.0-15.0); WHITE BLOOD COUNT (AUTO) 10.6 K/uL (4.8-10.8)
[2022-02-10 07:28] LABS: ANION GAP 6 (5-15); CALCIUM 8.9 mg/dL (8.4-11.0); CREATININE 0.98 mg/dL (0.55-1.30); GLUCOSE 241 mg/dL (70-99); UREA NITROGEN, BLOOD 9 mg/dL (8-21)
[2022-02-10 07:36] LABS: ALANINE AMINOTRANSFERASE 38 U/L (12-78); ALBUMIN 2.4 g/dL (3.4-4.8); ASPARTATE AMINOTRANSFERASE 34 U/L (10-37); C-REACTIVE PROTEIN QUANT 9.2 mg/dL (0-0.5); LIPASE 181 U/L (73-393); TOTAL BILIRUBIN 0.9 mg/dL (0.0-1.0)
[2022-02-10] MEDS ORDERED: clonazePAM 0.5 MG TABLET PO SCH (09:00)
[2022-02-10] MEDS: POTASSIUM CHLORIDE 20 MEQ/PKT PACKET PO SCH ×2 (09:00→21:43)
[2022-02-10] MEDS ORDERED: DULoxetine HCL 30 MG CAPSULE.DR (CYMBALTA) PO SCH (09:00)
[2022-02-10 09:03] LABS: CHLORIDE 125 mmol/L (98-107)
[2022-02-10 09:06] LABS: FOLATE (FOLIC ACID) 4.8 ng/mL (>3.0)
[2022-02-10] MEDS: ENOXAPARIN SODIUM 80 MG/0.8 ML SYRINGE SUBCUT SCH ×2 (09:37→21:43)
[2022-02-10] MEDS: PANTOPRAZOLE SODIUM 40 MG/VIAL (PROTONIX) IVP SCH (09:38)
[2022-02-10] MEDS: CHOLECALCIFEROL (VITAMIN D3) 5,000 UNIT TABLET PO SCH (09:38)
[2022-02-10] MEDS: MAGNESIUM OXIDE 400 MG TABLET PO SCH ×2 (09:38→21:43)
[2022-02-10] MEDS: ASCORBIC ACID 500 MG TABLET PO SCH ×2 (09:39→21:43)
[2022-02-10] MEDS: metFORMIN HCL 500 MG TABLET PO SCH ×2 (09:40→21:43)
[2022-02-10] MEDS: LEVOTHYROXINE SODIUM 0.075 MG TABLET PO SCH (09:42)
[2022-02-10 11:11] LABS: CHOLESTEROL 143 mg/dL (<200); HDL CHOLESTEROL 55 mg/dL (>55); LDL CHOLESTEROL 73 mg/dL (<100); TRIGLYCERIDES 154 mg/dL (30-150)
[2022-02-10] MEDS ORDERED: TOCILIZUMAB 400 MG in NS 100 ML IV ONE (19:00)
[2022-02-10] MEDS: DEXAMETHASONE SOD PHOSPHATE 10 MG/ML VIAL IVP SCH (21:43)
[2022-02-10] MEDS: AZITHROMYCIN 500 MG in NS 250 ML IV SCH (21:43)
[2022-02-11] VITALS (34 sets, daily range): BP systolic 79–168
[2022-02-11] MEDS: INSULIN REGULAR, HUMAN 100 UNITS/ML, 3 ML VIAL (humuLIN R) SUBCUT PRN ×4 (01:37→18:04)
[2022-02-11] MEDS: PIPERACILLIN/TAZO 3.375/DEX-IS 50 ML IV SCH ×3 (05:45→18:00)
[2022-02-11 07:54] LABS: ANION GAP 14 (5-15); CALCIUM 8.3 mg/dL (8.4-11.0); CHLORIDE 116 mmol/L (98-107); CREATININE 1.53 mg/dL (0.55-1.30); GLUCOSE 278 mg/dL (70-99); UREA NITROGEN, BLOOD 17 mg/dL (8-21)
[2022-02-11 08:13] LABS: ALANINE AMINOTRANSFERASE 33 U/L (12-78); ALBUMIN 2.3 g/dL (3.4-4.8); ASPARTATE AMINOTRANSFERASE 34 U/L (10-37); TOTAL BILIRUBIN 0.9 mg/dL (0.0-1.0)
[2022-02-11 08:24] LABS: BASOPHILS % (AUTO) 0.3 % (0.0-2.0); EOSINOPHILS % (AUTO) 0.1 % (0.0-4.0); HEMATOCRIT 38.1 % (36-48); HEMOGLOBIN 13.2 g/dL (12.0-16.0); LYMPHOCYTES # (AUTO) 1.1 K/uL (1.0-5.5); LYMPHOCYTES % (AUTO) 12.8 % (20.5-51.5); MEAN CORPUSCULAR HEMOGLOBIN 31 pg (27-31); MEAN CORPUSCULAR HGB CONC 35 % (32-36); MEAN CORPUSCULAR VOLUME 88 fL (79.0-98.0); MONOCYTES # (AUTO) 0.6 K/uL (0.0-1.0); MONOCYTES % (AUTO) 7.2 % (1.7-9.3); NEUTROPHILS # (AUTO) 7.1 K/uL (1.8-7.7); NEUTROPHILS % (AUTO) 79.6 % (40.0-70.0); PLATELET COUNT (AUTO) 120 K/uL (130-430); RED BLOOD CELL COUNT(AUTO) 4.32 MIL/uL (4.2-6.2); RED CELL DISTRIBUTION WIDTH 16.9 % (9.0-15.0); WHITE BLOOD COUNT (AUTO) 8.9 K/uL (4.8-10.8)
[2022-02-11] MEDS ORDERED: SODIUM POLYSTYRENE SULFONATE 15 GM/60 ML UDBTL PO ONE (08:45)
[2022-02-11] MEDS: CHOLECALCIFEROL (VITAMIN D3) 5,000 UNIT TABLET PO SCH (09:53)
[2022-02-11] MEDS: ASCORBIC ACID 500 MG TABLET PO SCH ×2 (09:53→21:36)
[2022-02-11] MEDS: PANTOPRAZOLE SODIUM 40 MG/VIAL (PROTONIX) IVP SCH (09:53)
[2022-02-11] MEDS: MAGNESIUM OXIDE 400 MG TABLET PO SCH ×2 (09:53→21:36)
[2022-02-11] MEDS: LEVOTHYROXINE SODIUM 0.075 MG TABLET PO SCH (09:53)
[2022-02-11] MEDS: ENOXAPARIN SODIUM 80 MG/0.8 ML SYRINGE SUBCUT SCH ×2 (09:56→21:36)
[2022-02-11] MEDS ORDERED: NOREPINEPHRINE 4 MG/4 ML VIAL IV ONE ×2 (09:56→22:10)
[2022-02-11] MEDS: 0.45% NACL 1,000 ML IV SCH ×2 (09:57→17:00)
[2022-02-11] MEDS: THEOPHYLLINE ANHYDROUS 200 MG CAP.ER.24H PO SCH ×2 (11:08→21:36)
[2022-02-11] MEDS ORDERED: ATROPINE SULFATE 0.4 MG/ML VIAL IVP ONE (15:30)
[2022-02-11 17:18] LABS: ANION GAP 10 (5-15); CALCIUM 8.5 mg/dL (8.4-11.0); CHLORIDE 117 mmol/L (98-107); CREATININE 1.65 mg/dL (0.55-1.30); GLUCOSE 219 mg/dL (70-99); UREA NITROGEN, BLOOD 23 mg/dL (8-21)
[2022-02-11] MEDS: AZITHROMYCIN 500 MG in NS 250 ML IV SCH (21:36)
[2022-02-11] MEDS: DEXAMETHASONE SOD PHOSPHATE 10 MG/ML VIAL IVP SCH (21:36)
[2022-02-11] MEDS ORDERED: ALBUMIN HUMAN 25% 100 ML IV ONE ×2 (21:45→22:09)
[2022-02-12] VITALS (33 sets, daily range): BP systolic 72–170
[2022-02-12] MEDS: PIPERACILLIN/TAZO 3.375/DEX-IS 50 ML IV SCH ×4 (00:19→17:59)
[2022-02-12] MEDS: 0.45% NACL 1,000 ML IV SCH ×3 (00:21→18:01)
[2022-02-12] MEDS: INSULIN REGULAR, HUMAN 100 UNITS/ML, 3 ML VIAL (humuLIN R) SUBCUT PRN ×4 (00:30→17:58)
[2022-02-12 06:50] LABS: BASOPHILS % (AUTO) 0.4 % (0.0-2.0); EOSINOPHILS # (AUTO) 0.2 K/uL (0.0-0.4); EOSINOPHILS % (AUTO) 1.6 % (0.0-4.0); HEMATOCRIT 30.5 % (36-48); HEMOGLOBIN 10.6 g/dL (12.0-16.0); LYMPHOCYTES # (AUTO) 1.1 K/uL (1.0-5.5); MEAN CORPUSCULAR HEMOGLOBIN 30 pg (27-31); MEAN CORPUSCULAR HGB CONC 35 % (32-36); MEAN CORPUSCULAR VOLUME 87 fL (79.0-98.0); MONOCYTES # (AUTO) 0.5 K/uL (0.0-1.0); MONOCYTES % (AUTO) 4.1 % (1.7-9.3); NEUTROPHILS # (AUTO) 10.1 K/uL (1.8-7.7); NEUTROPHILS % (AUTO) 84.9 % (40.0-70.0); PLATELET COUNT (AUTO) 146 K/uL (130-430); RED BLOOD CELL COUNT(AUTO) 3.51 MIL/uL (4.2-6.2); RED CELL DISTRIBUTION WIDTH 16.1 % (9.0-15.0); WHITE BLOOD COUNT (AUTO) 11.9 K/uL (4.8-10.8)
[2022-02-12 06:55] LABS: ANION GAP 13 (5-15); CALCIUM 8.3 mg/dL (8.4-11.0); CHLORIDE 116 mmol/L (98-107); CREATININE 1.72 mg/dL (0.55-1.30); GLUCOSE 280 mg/dL (70-99); UREA NITROGEN, BLOOD 28 mg/dL (8-21)
[2022-02-12] MEDS: LEVOTHYROXINE SODIUM 0.075 MG TABLET PO SCH (07:00)
[2022-02-12] MEDS: MAGNESIUM OXIDE 400 MG TABLET PO SCH ×2 (09:00→21:00)
[2022-02-12] MEDS: THEOPHYLLINE ANHYDROUS 200 MG CAP.ER.24H PO SCH ×2 (09:00→21:00)
[2022-02-12] MEDS: CHOLECALCIFEROL (VITAMIN D3) 5,000 UNIT TABLET PO SCH (09:00)
[2022-02-12] MEDS: ASCORBIC ACID 500 MG TABLET PO SCH ×2 (09:00→21:00)
[2022-02-12] MEDS: PANTOPRAZOLE SODIUM 40 MG/VIAL (PROTONIX) IVP SCH (09:35)
[2022-02-12] MEDS: ENOXAPARIN SODIUM 80 MG/0.8 ML SYRINGE SUBCUT SCH ×2 (09:36→22:18)
[2022-02-12] MEDS: NOREPINEPHRINE BITARTRATE 8 MG in D5W 242 ML IV PRN (16:01)
[2022-02-12] MEDS: AZITHROMYCIN 500 MG in NS 250 ML IV SCH (22:19)
[2022-02-12] MEDS: DEXAMETHASONE SOD PHOSPHATE 10 MG/ML VIAL IVP SCH (22:20)
[2022-02-13] VITALS (29 sets, daily range): BP systolic 77–169
[2022-02-13] MEDS: PIPERACILLIN/TAZO 3.375/DEX-IS 50 ML IV SCH ×5 (00:54→23:32)
[2022-02-13] MEDS: INSULIN REGULAR, HUMAN 100 UNITS/ML, 3 ML VIAL (humuLIN R) SUBCUT PRN ×4 (00:58→18:27)
[2022-02-13] MEDS: 0.45% NACL 1,000 ML IV SCH ×2 (05:53→14:51)
[2022-02-13] MEDS: LEVOTHYROXINE SODIUM 0.075 MG TABLET PO SCH (06:20)
[2022-02-13 07:03] LABS: BASOPHILS % (AUTO) 0.2 % (0.0-2.0); EOSINOPHILS % (AUTO) 0.1 % (0.0-4.0); HEMATOCRIT 27.2 % (36-48); HEMOGLOBIN 9.6 g/dL (12.0-16.0); LYMPHOCYTES # (AUTO) 0.9 K/uL (1.0-5.5); LYMPHOCYTES % (AUTO) 9.8 % (20.5-51.5); MEAN CORPUSCULAR HEMOGLOBIN 31 pg (27-31); MEAN CORPUSCULAR HGB CONC 35 % (32-36); MEAN CORPUSCULAR VOLUME 87 fL (79.0-98.0); MONOCYTES # (AUTO) 0.5 K/uL (0.0-1.0); MONOCYTES % (AUTO) 5.4 % (1.7-9.3); NEUTROPHILS # (AUTO) 7.6 K/uL (1.8-7.7); NEUTROPHILS % (AUTO) 84.5 % (40.0-70.0); RED BLOOD CELL COUNT(AUTO) 3.12 MIL/uL (4.2-6.2); RED CELL DISTRIBUTION WIDTH 16.2 % (9.0-15.0)
[2022-02-13 07:35] LABS: ANION GAP 14 (5-15); CALCIUM 8.3 mg/dL (8.4-11.0); CHLORIDE 115 mmol/L (98-107); CREATININE 1.73 mg/dL (0.55-1.30); GLUCOSE 248 mg/dL (70-99); UREA NITROGEN, BLOOD 29 mg/dL (8-21)
[2022-02-13 07:53] LABS: PLATELET COUNT (AUTO) 89 K/uL (130-430)
[2022-02-13] MEDS ORDERED: KCL 20 mEq in 100 mL (PREMIX) 100 ML IV ONE (08:45)
[2022-02-13] MEDS: ENOXAPARIN SODIUM 80 MG/0.8 ML SYRINGE SUBCUT SCH ×2 (09:00→20:54)
[2022-02-13] MEDS ORDERED: METOCLOPRAMIDE HCL 10 MG/2 ML VIAL IVP ONE (09:45)
[2022-02-13] MEDS: THEOPHYLLINE ANHYDROUS 200 MG CAP.ER.24H PO SCH ×2 (10:26→20:52)
[2022-02-13] MEDS: MAGNESIUM OXIDE 400 MG TABLET PO SCH ×2 (10:28→20:50)
[2022-02-13] MEDS: PANTOPRAZOLE SODIUM 40 MG/VIAL (PROTONIX) IVP SCH (10:28)
[2022-02-13] MEDS: ASCORBIC ACID 500 MG TABLET PO SCH ×2 (10:28→20:53)
[2022-02-13] MEDS: CHOLECALCIFEROL (VITAMIN D3) 5,000 UNIT TABLET PO SCH (10:28)
[2022-02-13] MEDS: METOCLOPRAMIDE HCL 10 MG/2 ML VIAL IVP SCH ×2 (15:14→21:01)
[2022-02-13] MEDS: DEXAMETHASONE SOD PHOSPHATE 10 MG/ML VIAL IVP SCH (20:56)
[2022-02-13] MEDS: NOREPINEPHRINE BITARTRATE 8 MG in D5W 242 ML IV PRN (23:34)
[2022-02-14] VITALS (33 sets, daily range): BP systolic 103–142
[2022-02-14] MEDS: 0.45% NACL 1,000 ML IV SCH ×3 (00:11→20:36)
[2022-02-14] MEDS: PIPERACILLIN/TAZO 3.375/DEX-IS 50 ML IV SCH ×4 (05:04→23:33)
[2022-02-14] MEDS: METOCLOPRAMIDE HCL 10 MG/2 ML VIAL IVP SCH ×3 (05:06→23:32)
[2022-02-14] MEDS: LEVOTHYROXINE SODIUM 0.075 MG TABLET PO SCH (05:08)
[2022-02-14] MEDS: INSULIN REGULAR, HUMAN 100 UNITS/ML, 3 ML VIAL (humuLIN R) SUBCUT PRN ×3 (05:35→23:51)
[2022-02-14 06:46] LABS: BASOPHILS % (AUTO) 0.1 % (0.0-2.0); EOSINOPHILS % (AUTO) 0.2 % (0.0-4.0); HEMATOCRIT 26.2 % (36-48); HEMOGLOBIN 9.4 g/dL (12.0-16.0); LYMPHOCYTES # (AUTO) 1.1 K/uL (1.0-5.5); LYMPHOCYTES % (AUTO) 11.9 % (20.5-51.5); MEAN CORPUSCULAR HEMOGLOBIN 31 pg (27-31); MEAN CORPUSCULAR HGB CONC 36 % (32-36); MEAN CORPUSCULAR VOLUME 86 fL (79.0-98.0); MONOCYTES # (AUTO) 0.3 K/uL (0.0-1.0); MONOCYTES % (AUTO) 3.8 % (1.7-9.3); NEUTROPHILS # (AUTO) 7.5 K/uL (1.8-7.7); PLATELET COUNT (AUTO) 93 K/uL (130-430); RED BLOOD CELL COUNT(AUTO) 3.05 MIL/uL (4.2-6.2); RED CELL DISTRIBUTION WIDTH 16.5 % (9.0-15.0); WHITE BLOOD COUNT (AUTO) 8.9 K/uL (4.8-10.8)
[2022-02-14 07:06] LABS: ANION GAP 14 (5-15); CALCIUM 8.4 mg/dL (8.4-11.0); CHLORIDE 115 mmol/L (98-107); CREATININE 1.92 mg/dL (0.55-1.30); GLUCOSE 272 mg/dL (70-99); UREA NITROGEN, BLOOD 29 mg/dL (8-21)
[2022-02-14] MEDS ORDERED: FUROSEMIDE 20 MG/2 ML VIAL IVP ONE (09:00)
[2022-02-14] MEDS: PANTOPRAZOLE SODIUM 40 MG/VIAL (PROTONIX) IVP SCH (09:20)
[2022-02-14] MEDS: ASCORBIC ACID 500 MG TABLET PO SCH ×2 (09:20→20:39)
[2022-02-14] MEDS: ENOXAPARIN SODIUM 80 MG/0.8 ML SYRINGE SUBCUT SCH ×2 (09:20→20:45)
[2022-02-14] MEDS: CHOLECALCIFEROL (VITAMIN D3) 5,000 UNIT TABLET PO SCH (09:20)
[2022-02-14] MEDS: MAGNESIUM OXIDE 400 MG TABLET PO SCH ×2 (09:21→20:37)
[2022-02-14] MEDS: THEOPHYLLINE ANHYDROUS 200 MG CAP.ER.24H PO SCH ×2 (09:21→20:38)
[2022-02-14] MEDS: DEXAMETHASONE SOD PHOSPHATE 10 MG/ML VIAL IVP SCH (20:46)
[2022-02-15] VITALS (36 sets, daily range): BP systolic 92–132
[2022-02-15] MEDS: 0.45% NACL 1,000 ML IV SCH ×2 (06:13→16:33)
[2022-02-15] MEDS: PIPERACILLIN/TAZO 3.375/DEX-IS 50 ML IV SCH (06:14)
[2022-02-15] MEDS: METOCLOPRAMIDE HCL 10 MG/2 ML VIAL IVP SCH ×3 (06:16→21:37)
[2022-02-15] MEDS: LEVOTHYROXINE SODIUM 0.075 MG TABLET PO SCH (06:16)
[2022-02-15] MEDS: INSULIN REGULAR, HUMAN 100 UNITS/ML, 3 ML VIAL (humuLIN R) SUBCUT PRN ×3 (06:20→18:49)
[2022-02-15 06:58] LABS: CHLORIDE 112 mmol/L (98-107); CREATININE 1.87 mg/dL (0.55-1.30); GLUCOSE 291 mg/dL (70-99); UREA NITROGEN, BLOOD 29 mg/dL (8-21)
[2022-02-15 07:11] LABS: ANION GAP 19 (5-15)
[2022-02-15 08:06] LABS: BASOPHILS % (AUTO) 0.3 % (0.0-2.0); EOSINOPHILS # (AUTO) 0.1 K/uL (0.0-0.4); EOSINOPHILS % (AUTO) 1.7 % (0.0-4.0); HEMATOCRIT 22.9 % (36-48); HEMOGLOBIN 8.2 g/dL (12.0-16.0); LYMPHOCYTES # (AUTO) 0.8 K/uL (1.0-5.5); LYMPHOCYTES % (AUTO) 12.6 % (20.5-51.5); MEAN CORPUSCULAR HEMOGLOBIN 31 pg (27-31); MEAN CORPUSCULAR HGB CONC 36 % (32-36); MEAN CORPUSCULAR VOLUME 86 fL (79.0-98.0); MONOCYTES # (AUTO) 0.3 K/uL (0.0-1.0); NEUTROPHILS % (AUTO) 80.4 % (40.0-70.0); PLATELET COUNT (AUTO) 79 K/uL (130-430); RED BLOOD CELL COUNT(AUTO) 2.66 MIL/uL (4.2-6.2); RED CELL DISTRIBUTION WIDTH 16.1 % (9.0-15.0)
[2022-02-15 08:37] LABS: WHITE BLOOD COUNT (AUTO) 6.2 K/uL (4.8-10.8)
[2022-02-15] MEDS: CHOLECALCIFEROL (VITAMIN D3) 5,000 UNIT TABLET PO SCH (08:50)
[2022-02-15] MEDS: ASCORBIC ACID 500 MG TABLET PO SCH ×2 (08:50→20:50)
[2022-02-15] MEDS: PANTOPRAZOLE SODIUM 40 MG/VIAL (PROTONIX) IVP SCH (08:50)
[2022-02-15] MEDS: MAGNESIUM OXIDE 400 MG TABLET PO SCH ×2 (08:50→20:49)
[2022-02-15] MEDS: ENOXAPARIN SODIUM 80 MG/0.8 ML SYRINGE SUBCUT SCH ×2 (08:52→20:51)
[2022-02-15] MEDS: THEOPHYLLINE ANHYDROUS 200 MG CAP.ER.24H PO SCH ×2 (08:53→20:50)
[2022-02-15] MEDS ORDERED: KCL 40 mEq in 100 mL (PREMIX) 100 ML IV ONE (09:00)
[2022-02-15] MEDS: DEXAMETHASONE SOD PHOSPHATE 10 MG/ML VIAL IVP SCH (20:52)
[2022-02-16] VITALS (32 sets, daily range): BP systolic 75–124
[2022-02-16] MEDS: 0.45% NACL 1,000 ML IV SCH ×3 (05:54→13:15)
[2022-02-16] MEDS: METOCLOPRAMIDE HCL 10 MG/2 ML VIAL IVP SCH ×3 (05:58→21:25)
[2022-02-16] MEDS: LEVOTHYROXINE SODIUM 0.075 MG TABLET PO SCH (06:00)
[2022-02-16] MEDS: INSULIN REGULAR, HUMAN 100 UNITS/ML, 3 ML VIAL (humuLIN R) SUBCUT PRN ×3 (06:28→17:59)
[2022-02-16 07:57] LABS: ANION GAP 13 (5-15); CALCIUM 8.6 mg/dL (8.4-11.0); CHLORIDE 109 mmol/L (98-107); CREATININE 1.85 mg/dL (0.55-1.30); GLUCOSE 266 mg/dL (70-99); UREA NITROGEN, BLOOD 32 mg/dL (8-21)
[2022-02-16 08:16] LABS: BASOPHILS % (AUTO) 0.2 % (0.0-2.0); EOSINOPHILS % (AUTO) 0.1 % (0.0-4.0); HEMOGLOBIN 7.5 g/dL (12.0-16.0); LYMPHOCYTES # (AUTO) 1.1 K/uL (1.0-5.5); LYMPHOCYTES % (AUTO) 11.6 % (20.5-51.5); MEAN CORPUSCULAR HEMOGLOBIN 31 pg (27-31); MEAN CORPUSCULAR HGB CONC 36 % (32-36); MEAN CORPUSCULAR VOLUME 85 fL (79.0-98.0); MONOCYTES # (AUTO) 0.6 K/uL (0.0-1.0); MONOCYTES % (AUTO) 6.7 % (1.7-9.3); NEUTROPHILS # (AUTO) 7.4 K/uL (1.8-7.7); NEUTROPHILS % (AUTO) 81.4 % (40.0-70.0); PLATELET COUNT (AUTO) 65 K/uL (130-430); RED BLOOD CELL COUNT(AUTO) 2.44 MIL/uL (4.2-6.2); RED CELL DISTRIBUTION WIDTH 16.1 % (9.0-15.0)
[2022-02-16] MEDS: ASCORBIC ACID 500 MG TABLET PO SCH ×2 (08:16→21:26)
[2022-02-16] MEDS: CHOLECALCIFEROL (VITAMIN D3) 5,000 UNIT TABLET PO SCH (08:16)
[2022-02-16] MEDS: MAGNESIUM OXIDE 400 MG TABLET PO SCH ×2 (08:17→21:27)
[2022-02-16] MEDS: THEOPHYLLINE ANHYDROUS 200 MG CAP.ER.24H PO SCH ×2 (08:17→21:25)
[2022-02-16] MEDS: PANTOPRAZOLE SODIUM 40 MG/VIAL (PROTONIX) IVP SCH (08:17)
[2022-02-16] MEDS: ENOXAPARIN SODIUM 80 MG/0.8 ML SYRINGE SUBCUT SCH ×2 (08:19→21:26)
[2022-02-16 10:04] LABS: HEMATOCRIT 20.8 % (36-48)
[2022-02-16] MEDS ORDERED: POTASSIUM CHLORIDE 20 MEQ/PKT PACKET PO ONE (12:30)
[2022-02-16] MEDS ORDERED: SODIUM BICARBONATE 8.4% JECT 50 MEQ/50 ML SYRINGE IVP ONE (12:45)
[2022-02-16] MEDS: D5/0.45 NS 1,000 ML IV SCH (19:39)
[2022-02-16] MEDS: DEXAMETHASONE SOD PHOSPHATE 10 MG/ML VIAL IVP SCH (21:25)
[2022-02-17] VITALS (21 sets, daily range): BP systolic 38–132
[2022-02-17] MEDS: INSULIN REGULAR, HUMAN 100 UNITS/ML, 3 ML VIAL (humuLIN R) SUBCUT PRN ×4 (01:50→17:28)
[2022-02-17] MEDS: NOREPINEPHRINE BITARTRATE 8 MG in D5W 242 ML IV PRN (01:53)
[2022-02-17] MEDS: D5/0.45 NS 1,000 ML IV SCH (05:21)
[2022-02-17] MEDS: LEVOTHYROXINE SODIUM 0.075 MG TABLET PO SCH (06:09)
[2022-02-17] MEDS: METOCLOPRAMIDE HCL 10 MG/2 ML VIAL IVP SCH ×3 (06:09→22:24)
[2022-02-17] MEDS ORDERED: NOREPINEPHRINE 4 MG/4 ML VIAL IV ONE (06:26)
[2022-02-17] MEDS ORDERED: NOREPINEPHRINE BITARTRATE 16 MG in NS 234 ML IV PRN (08:30)
[2022-02-17] MEDS: NOREPINEPHRINE BITARTRATE 16 MG in NS 234 ML IV PRN ×2 (08:42→12:56)
[2022-02-17] MEDS: ASCORBIC ACID 500 MG TABLET PO SCH ×2 (09:42→22:23)
[2022-02-17] MEDS: PANTOPRAZOLE SODIUM 40 MG/VIAL (PROTONIX) IVP SCH (09:42)
[2022-02-17] MEDS: MAGNESIUM OXIDE 400 MG TABLET PO SCH ×2 (09:43→22:23)
[2022-02-17] MEDS: THEOPHYLLINE ANHYDROUS 200 MG CAP.ER.24H PO SCH ×2 (09:43→22:23)
[2022-02-17] MEDS: CHOLECALCIFEROL (VITAMIN D3) 5,000 UNIT TABLET PO SCH (09:43)
[2022-02-17] MEDS: ENOXAPARIN SODIUM 80 MG/0.8 ML SYRINGE SUBCUT SCH ×2 (09:43→21:00)
[2022-02-17] MEDS ORDERED: FUROSEMIDE 40 MG/4 ML VIAL IVP ONE (09:45)
[2022-02-17] MEDS ORDERED: CEFEPIME 2 GM in D5W 100 ML IV SCH (10:00)
[2022-02-17 11:44] LABS: ALANINE AMINOTRANSFERASE 81 U/L (12-78); ANION GAP 23 (5-15); ASPARTATE AMINOTRANSFERASE 76 U/L (10-37); CALCIUM 7.1 mg/dL (8.4-11.0); CHLORIDE 104 mmol/L (98-107); TOTAL BILIRUBIN 0.7 mg/dL (0.0-1.0); UREA NITROGEN, BLOOD 36 mg/dL (8-21)
[2022-02-17] MEDS ORDERED: NOREPINEPHRINE BITARTRATE 32 MG in NS 234 ML IV PRN (11:45)
[2022-02-17 11:47] LABS: GLUCOSE 495 mg/dL (70-99); MEAN CORPUSCULAR HEMOGLOBIN 29 pg (27-31); MEAN CORPUSCULAR HGB CONC 32 % (32-36); MEAN CORPUSCULAR VOLUME 91 fL (79.0-98.0); PLATELET COUNT (AUTO) 173 K/uL (130-430); RED BLOOD CELL COUNT(AUTO) 2.06 MIL/uL (4.2-6.2); RED CELL DISTRIBUTION WIDTH 16.2 % (9.0-15.0)
[2022-02-17 11:55] LABS: HEMATOCRIT 18.7 % (36-48); HEMOGLOBIN 6.1 g/dL (12.0-16.0); WHITE BLOOD COUNT (AUTO) 42.3 K/uL (4.8-10.8)
[2022-02-17] MEDS ORDERED: SODIUM BICARBONATE 8.4% JECT 50 MEQ/50 ML SYRINGE IVP ONE (13:00)
[2022-02-17] MEDS ORDERED: PHENYLEPHRINE HCL 100 MG in NS 240 ML IV PRN (13:00)
[2022-02-17] MEDS: SODIUM BICARBONATE 8.4% JECT 150 MEQ in D5W 1,000 ML IVP SCH ×2 (14:12→23:41)
[2022-02-17 15:06] LABS: BAND % (MANUAL) 23 % (0-6); BASOPHILS % (MANUAL) 0 % (0-2); CORRECTED WHITE BLOOD COUNT 33.8 K/uL (4.5-11.0); EOSINOPHILS % (MANUAL) 0 % (0-7); LYMPHOCYTES % (MANUAL) 10 % (20-46); METAMYELOCYTES % 10 % (0-0); MONOCYTES % (MANUAL) 10 % (0-11); MYELOCYTES % 1 % (0-0)
[2022-02-17] MEDS ORDERED: VASOPRESSIN 20 UNITS/ML VIAL IV ONE (15:28)
[2022-02-17] MEDS ORDERED: VASOPRESSIN 40 UNITS in NS 38 ML IV PRN (15:30)
[2022-02-17] MEDS ORDERED: FUROSEMIDE 40 MG/4 ML VIAL IVP SCH (21:00)
[2022-02-17] MEDS: DEXAMETHASONE SOD PHOSPHATE 10 MG/ML VIAL IVP SCH (22:23)
[2022-02-18] MEDS: METOCLOPRAMIDE HCL 10 MG/2 ML VIAL IVP SCH (06:21)
[2022-02-18] MEDS: LEVOTHYROXINE SODIUM 0.075 MG TABLET PO SCH (06:22)
[2022-02-18 07:24] LABS: ALANINE AMINOTRANSFERASE 655 U/L (12-78); ANION GAP 17 (5-15); ASPARTATE AMINOTRANSFERASE 1484 U/L (10-37); CHLORIDE 90 mmol/L (98-107); CREATININE 2.77 mg/dL (0.55-1.30); TOTAL BILIRUBIN 1.2 mg/dL (0.0-1.0); UREA NITROGEN, BLOOD 32 mg/dL (8-21)
[2022-02-18 07:36] LABS: BASOPHILS # (AUTO) 0.2 K/uL (0.0-0.2); BASOPHILS % (AUTO) 0.6 % (0.0-2.0); EOSINOPHILS # (AUTO) 0.2 K/uL (0.0-0.4); EOSINOPHILS % (AUTO) 0.6 % (0.0-4.0); LYMPHOCYTES # (AUTO) 4.2 K/uL (1.0-5.5); LYMPHOCYTES % (AUTO) 14.9 % (20.5-51.5); MEAN CORPUSCULAR HEMOGLOBIN 30 pg (27-31); MEAN CORPUSCULAR HGB CONC 32 % (32-36); MEAN CORPUSCULAR VOLUME 93 fL (79.0-98.0); MONOCYTES # (AUTO) 0.3 K/uL (0.0-1.0); MONOCYTES % (AUTO) 1.2 % (1.7-9.3); NEUTROPHILS # (AUTO) 23.4 K/uL (1.8-7.7); NEUTROPHILS % (AUTO) 82.7 % (40.0-70.0); PLATELET COUNT (AUTO) 67 K/uL (130-430); RED CELL DISTRIBUTION WIDTH 17.6 % (9.0-15.0); WHITE BLOOD COUNT (AUTO) 28.3 K/uL (4.8-10.8)
[2022-02-18 07:41] LABS: GLUCOSE 862 mg/dL (70-99)
[2022-02-18 11:39] LABS: HEMATOCRIT 16.5 % (36-48); HEMOGLOBIN 5.3 g/dL (12.0-16.0); RED BLOOD CELL COUNT(AUTO) 1.78 MIL/uL (4.2-6.2)
== END 2022-02-18 11:06 | DRG 207 ==
LOC: SED 15:34 → SIC 18:13
PROVIDERS: ADMIT General Practice; ATTEND General Practice
PROC: 5A1955Z Respiratory Ventilation, Greater than 96 Consecutive Hours (ICD-10-PCS; principal; 2022-02-08)
PROC: 0BH17EZ Insertion of Endotracheal Airway into Trachea, Via Natural or Artificial Opening (ICD-10-PCS; 2022-02-08)
PROC: XW033E5 Introduction of Remdesivir Anti-infective into Peripheral Vein, Percutaneous Approach, New Technology Group 5 (ICD-10-PCS; 2022-02-08)
PROC: XW033H5 Introduction of Tocilizumab into Peripheral Vein, Percutaneous Approach, New Technology Group 5 (ICD-10-PCS; 2022-02-08)
PROC: 05H933Z Insertion of Infusion Device into Right Brachial Vein, Percutaneous Approach (ICD-10-PCS; 2022-02-08)
PROC: 30233N1 Transfusion of Nonautologous Red Blood Cells into Peripheral Vein, Percutaneous Approach (ICD-10-PCS; 2022-02-17)
DX: U07.1 COVID-19 (principal); J69.0 Pneumonitis due to inhalation of food and vomit; J96.01 Acute respiratory failure with hypoxia; G93.41 Metabolic encephalopathy; R53.2 Functional quadriplegia; I21.4 Non-ST elevation (NSTEMI) myocardial infarction; E87.1 Hypo-osmolality and hyponatremia; I47.1 Supraventricular tachycardia; N17.9 Acute kidney failure, unspecified; I46.9 Cardiac arrest, cause unspecified; E78.5 Hyperlipidemia, unspecified; E03.9 Hypothyroidism, unspecified; E87.6 Hypokalemia; E86.0 Dehydration; F20.9 Schizophrenia, unspecified; E11.9 Type 2 diabetes mellitus without complications; I10 Essential (primary) hypertension; F32.A Depression, unspecified; Z88.8 Allergy status to other drugs, medicaments and biological substances; Z79.899 Other long term (current) drug therapy; Z85.72 Personal history of non-Hodgkin lymphomas; Z79.84 Long term (current) use of oral hypoglycemic drugs; Z91.14 Patient's other noncompliance with medication regimen; Z68.25 Body mass index [BMI] 25.0-25.9, adult; Z66 Do not resuscitate
CPT/HCPCS: 36415; 36600; 70450-TC; 71045; 74018; 76376; 76770; 80048; 80053; 80061; 80307; 81000; 82009; 82140; 82550; 82607; 82746; 82803-TC; 82962; 83605; 83690; 83735; 83880; 84100; 84484; 85007; 85025; 85027; 85379; 85610-TC; 85730-TC; 86140; 86886; 86900; 86901; 86920; 87040; 87070-TC; 87081; 87205-TC; 93005; 94002; 94003; 94640; 94760; 95816; 99291; C9113; G0480; G0481; G0482; J0456; J0692; J1100; J1265; J1650; J1940; J2310; J2370; J2543; J2704; J2765; J3262; J3370; J3480; J3490; J7030; J7050; J7060; P9021; P9046